=== PATIENT | female | born 1955 | race Caucasian/White ===

== ENCOUNTER 2017-10-11 15:45 | Inpatient (IN) | payer MEDICAID ==
[~2017-10-11] VITALS: Ht 152.4 cm; Wt 60.4 kg
[~2017-10-11 15:45] MED LIST: ALBU2.5V10 IH; ATR0.5NEB NEB; BUDE180A2 INH; BUSP5TAB26 PO; CLON-527 PO; COMIN IH; DIT5T PO; ESCI20TA29 PO; IBUP-1984 PO; LISI-222 PO; LORA-512 PO; LORA0.5T PO; METF500T4 PO; MONT10TA21 PO
[2017-10-11] MEDS ORDERED: methylPREDNISolone sod succ 125mg/2ml vial IV ONE (16:00)
[2017-10-11] MEDS ORDERED: ipratropium/albuterol 3ml nebule NEB ONE ×2 (16:00→19:40)
[2017-10-11 16:28] LABS: BASOPHILS % (AUTO) 0.4 % (0-1); EOSINOPHILS % (AUTO) 0.8 % (0-6); HEMATOCRIT 32.7 % (35.0-45.0); HEMOGLOBIN 10.6 g/dl (12.0-16.0); LYMPHOCYTES # (AUTO) 1.6 X10'3 (1.1-4.8); LYMPHOCYTES % (AUTO) 27.1 % (21-51); MEAN CORPUSCULAR HEMOGLOBIN 29.1 PG (27.0-31.0); MEAN CORPUSCULAR HGB CONC 32.4 % (33.0-36.5); MEAN CORPUSCULAR VOLUME 89.8 FL (78-98); MEAN PLATELET VOLUME 7.7 FL (7.4-10.4); MONOCYTES # (AUTO) 0.7 X10'3 (0-0.9); MONOCYTES % (AUTO) 11.6 % (2-12); NEUTROPHILS # (AUTO) 3.5 X10'3 (1.8-7.7); NEUTROPHILS % (AUTO) 60.1 % (42-75); PLATELET COUNT 251 X10'3 (140-440); RED BLOOD COUNT 3.64 X10'6 (4.20-5.60); RED CELL DISTRIBUTION WIDTH 15.9 % (11.5-14.5); WHITE BLOOD COUNT 5.8 X10'3 (4.5-11.0)
[2017-10-11 16:44] LABS: ALANINE AMINOTRANSFERASE 14 U/L (12-78); ALBUMIN/GLOBULIN RATIO 0.9 (1.1-1.5); ALKALINE PHOSPHATASE 67 IU/L (46-116); ANION GAP 7 (8-16); ASPARTATE AMINO TRANSFERASE 15 U/L (10-37); BILIRUBIN,TOTAL 0.2 MG/DL (0.1-1.0); BLOOD UREA NITROGEN 13 MG/DL (7-18); BUN/CREATININE RATIO 21.7 (6.6-38.0); CALCIUM 8.8 MG/DL (8.5-10.1); CHLORIDE 103 MMOL/L (99-107); GLUCOSE 112 MG/DL (70-104); POTASSIUM 4.1 MMOL/L (3.5-5.1); SODIUM 140 MMOL/L (135-145); TOTAL CARBON DIOXIDE 30.4 MMOL/L (24-32); TOTAL PROTEIN 6.2 G/DL (6.4-8.2); eGFR > 90 ML/MIN
[2017-10-11] MEDS ORDERED: PRED10TA PO (18:50)
[2017-10-11] MEDS ORDERED: TAM75C PO (18:50)
[2017-10-11] MEDS ORDERED: ATOR10TA87 PO (20:37)
[2017-10-11] MEDS ORDERED: FLUT1AER INH (20:37)
[2017-10-11] MEDS ORDERED: EPIN0.3P8 IM (20:37)
[2017-10-11] MEDS ORDERED: ALBU18HF2 INH (20:37)
[2017-10-11] MEDS ORDERED: GABA-532 PO (20:37)
[2017-10-11] MEDS ORDERED: CHOL100012 PO (20:37)
[2017-10-11] MEDS ORDERED: ASPI-107 PO (20:37)
[2017-10-11] MEDS ORDERED: IPRA4AER IH (20:37)
[2017-10-11] MEDS ORDERED: BUSP10TA11 PO (20:37)
[2017-10-11] MEDS ORDERED: IBUP-1984 PO (20:37)
[2017-10-11] MEDS ORDERED: oseltamivir phos 75mg capsule PO ONE (20:42)
[2017-10-11] MEDS ORDERED: mag hydrox/Alum hydrox/simeth 30ml oral suspension PO PRN (20:55)
[2017-10-11] MEDS ORDERED: MESSAGE TO PHARMACY PO ONE (20:55)
[2017-10-11] MEDS ORDERED: ondansetron/PF 4mg/2ml inj IV PRN (20:55)
[2017-10-11] MEDS ORDERED: glucagon, human recombinant 1mg kit SUBCUT PRN (20:55)
[2017-10-11] MEDS ORDERED: acetaminophen 325mg tablet PO PRN (20:55)
[2017-10-11] MEDS ORDERED: dextrose ORAL solution 15 GM/59 ML bottle PO PRN ×2 (20:55)
[2017-10-11] MEDS ORDERED: magnesium hydroxide 30ml (MOM) UD suspension PO PRN (20:55)
[2017-10-11] MEDS ORDERED: dextrose 50%-water 50ml dispensing syringe IV PRN ×2 (20:55)
[2017-10-11] MEDS: Insulin Detemir pen SQ SCH (21:00)
[2017-10-11] MEDS: oseltamivir phos 75mg capsule PO SCH (21:36)
[2017-10-11] MEDS: montelukast 10mg tablet PO SCH (21:36)
[2017-10-11] MEDS: normal saline 1000ml 1,000 ML IV SCH (22:00)
[2017-10-11 23:11] VITALS: BP 119/53
[2017-10-11] MEDS: ipratropium/albuterol 3ml nebule NEB PRN (23:51)
[2017-10-12] VITALS: BP 119/53
[2017-10-12] MEDS: methylPREDNISolone sod succ 125mg/2ml vial IV SCH ×4 (02:16→21:25)
[2017-10-12] MEDS: LORazepam 0.5 MG tablet PO PRN ×2 (02:16→21:25)
[2017-10-12 05:44] LABS: BASOPHILS % (AUTO) 0.3 % (0-1); EOSINOPHILS % (AUTO) 1.1 % (0-6); HEMATOCRIT 32.6 % (35.0-45.0); HEMOGLOBIN 10.6 g/dl (12.0-16.0); LYMPHOCYTES # (AUTO) 0.6 X10'3 (1.1-4.8); LYMPHOCYTES % (AUTO) 20.5 % (21-51); MEAN CORPUSCULAR HEMOGLOBIN 28.9 PG (27.0-31.0); MEAN CORPUSCULAR HGB CONC 32.4 % (33.0-36.5); MEAN CORPUSCULAR VOLUME 89.4 FL (78-98); MEAN PLATELET VOLUME 8.4 FL (7.4-10.4); MONOCYTES # (AUTO) 0.1 X10'3 (0-0.9); MONOCYTES % (AUTO) 3.8 % (2-12); NEUTROPHILS % (AUTO) 74.3 % (42-75); PLATELET COUNT 227 X10'3 (140-440); RED BLOOD COUNT 3.65 X10'6 (4.20-5.60); RED CELL DISTRIBUTION WIDTH 15.5 % (11.5-14.5); WHITE BLOOD COUNT 2.7 X10'3 (4.5-11.0)
[2017-10-12 05:58] LABS: ALBUMIN 2.9 G/DL (3.4-5.0); ANION GAP 2 (8-16); BLOOD UREA NITROGEN 10 MG/DL (7-18); BUN/CREATININE RATIO 22.2 (6.6-38.0); CALCIUM 8.3 MG/DL (8.5-10.1); CHLORIDE 104 MMOL/L (99-107); CREATININE 0.45 MG/DL (0.40-0.90); GLUCOSE 147 MG/DL (70-104); POTASSIUM 4.5 MMOL/L (3.5-5.1); SODIUM 138 MMOL/L (135-145); TOTAL CARBON DIOXIDE 31.6 MMOL/L (24-32); eGFR > 90 ML/MIN
[2017-10-12 06:41] LABS: HEMOGLOBIN A1C 6.6 % (4.5-6.2)
[2017-10-12] MEDS: normal saline 1000ml 1,000 ML IV SCH ×2 (06:53→08:27)
[2017-10-12 06:56] LABS: BANDS% (MANUAL) 5 % (0-10); NEUTROPHILS % (MANUAL) 80 % (42-75); TOTAL CELLS COUNTED 100
[2017-10-12 06:57] LABS: LYMPHOCYTES % (MANUAL) 13 % (21-51); MONOCYTES % (MANUAL) 2 % (2-12); PLATELET ESTIMATE NORMAL; SMUDGE CELLS 1+
[2017-10-12 07:22] VITALS: BP 106/64
[2017-10-12] MEDS: ipratropium/albuterol 3ml nebule NEB PRN ×2 (08:24→15:10)
[2017-10-12] MEDS: vitamin D (cholecalciferol) 1,000 unit tablet PO SCH (08:29)
[2017-10-12] MEDS: loratadine 10mg tablet PO SCH (08:31)
[2017-10-12] MEDS: busPIRone 5mg tablet PO SCH ×2 (08:31→21:25)
[2017-10-12] MEDS: aspirin 81mg tablet.DR PO SCH (08:32)
[2017-10-12] MEDS: oxybutynin 5mg tablet PO SCH ×2 (08:33→21:25)
[2017-10-12] MEDS: lisinopril 5mg tablet PO SCH (08:33)
[2017-10-12] MEDS: oseltamivir phos 75mg capsule PO SCH ×2 (08:33→21:25)
[2017-10-12] MEDS: gabapentin 300mg capsule PO SCH (08:34)
[2017-10-12] MEDS: atorvastatin 10mg tablet PO SCH (08:34)
[2017-10-12] MEDS: citalopram 20mg tablet PO SCH (08:35)
[2017-10-12] MEDS: enoxaparin 40mg/0.4ml syringe SUBCUT SCH (08:36)
[2017-10-12] MEDS: insulin Lispro (HumaLOG) vial - multi-dose SQ SCH ×3 (08:59→19:21)
[2017-10-12] MEDS ORDERED: guaiFENesin/codeine phos 10ml UD oral syrup PO PRN (10:10)
[2017-10-12] MEDS ORDERED: azithromycin 250mg tablet PO ONE (10:20)
[2017-10-12] MEDS: cefTRIAXone 1g/NS 100ml IVPB 100 ML IV SCH (10:49)
[2017-10-12 12:53] VITALS: BP 115/71
[2017-10-12] MEDS: acetaminophen 325mg tablet PO PRN (16:06)
[2017-10-12 19:30] VITALS: BP 122/63
[2017-10-12] MEDS: montelukast 10mg tablet PO SCH (21:25)
[2017-10-12] MEDS: Insulin Detemir pen SQ SCH (21:54)
[2017-10-12 23:30] VITALS: BP 95/64
[2017-10-13] MEDS: methylPREDNISolone sod succ 125mg/2ml vial IV SCH ×4 (03:09→19:33)
[2017-10-13 06:09] LABS: BASOPHILS % (AUTO) 0 % (0-1); EOSINOPHILS # (AUTO) 0.1 X10'3 (0-0.9); EOSINOPHILS % (AUTO) 1.3 % (0-6); HEMATOCRIT 31.9 % (35.0-45.0); HEMOGLOBIN 10.4 g/dl (12.0-16.0); LYMPHOCYTES % (AUTO) 17.2 % (21-51); MEAN CORPUSCULAR HGB CONC 32.7 % (33.0-36.5); MEAN CORPUSCULAR VOLUME 88.5 FL (78-98); MEAN PLATELET VOLUME 8.3 FL (7.4-10.4); MONOCYTES # (AUTO) 0.3 X10'3 (0-0.9); MONOCYTES % (AUTO) 5.5 % (2-12); NEUTROPHILS # (AUTO) 4.5 X10'3 (1.8-7.7); PLATELET COUNT 258 X10'3 (140-440); RED CELL DISTRIBUTION WIDTH 15.3 % (11.5-14.5); WHITE BLOOD COUNT 5.9 X10'3 (4.5-11.0)
[2017-10-13 06:22] LABS: ANION GAP 6 (8-16); BLOOD UREA NITROGEN 14 MG/DL (7-18); BUN/CREATININE RATIO 24.6 (6.6-38.0); CALCIUM 8.8 MG/DL (8.5-10.1); CHLORIDE 103 MMOL/L (99-107); CREATININE 0.57 MG/DL (0.40-0.90); GLUCOSE 146 MG/DL (70-104); POTASSIUM 4.1 MMOL/L (3.5-5.1); SODIUM 140 MMOL/L (135-145); TOTAL CARBON DIOXIDE 31.3 MMOL/L (24-32); eGFR > 90 ML/MIN
[2017-10-13 07:45] VITALS: BP 116/77
[2017-10-13] MEDS: cefTRIAXone 1g/NS 100ml IVPB 100 ML IV SCH (09:46)
[2017-10-13] MEDS: gabapentin 300mg capsule PO SCH (09:49)
[2017-10-13] MEDS: citalopram 20mg tablet PO SCH (09:50)
[2017-10-13] MEDS: aspirin 81mg tablet.DR PO SCH (09:51)
[2017-10-13] MEDS: busPIRone 5mg tablet PO SCH ×2 (09:51→19:33)
[2017-10-13] MEDS: atorvastatin 10mg tablet PO SCH (09:51)
[2017-10-13] MEDS: azithromycin 250mg tablet PO SCH (09:52)
[2017-10-13] MEDS: vitamin D (cholecalciferol) 1,000 unit tablet PO SCH (09:52)
[2017-10-13] MEDS: loratadine 10mg tablet PO SCH (09:53)
[2017-10-13] MEDS: oseltamivir phos 75mg capsule PO SCH ×2 (09:53→19:33)
[2017-10-13] MEDS: lisinopril 5mg tablet PO SCH (09:55)
[2017-10-13] MEDS: oxybutynin 5mg tablet PO SCH ×2 (09:56→19:33)
[2017-10-13] MEDS: enoxaparin 40mg/0.4ml syringe SUBCUT SCH (09:56)
[2017-10-13] MEDS: insulin Lispro (HumaLOG) vial - multi-dose SQ SCH ×3 (10:09→19:39)
[2017-10-13] MEDS: ipratropium/albuterol 3ml nebule NEB PRN ×2 (10:21→14:47)
[2017-10-13 11:00] VITALS: BP 116/63
[2017-10-13 19:00] VITALS: BP 131/82
[2017-10-13] MEDS: ipratropium/albuterol 3ml nebule NEB SCH ×2 (19:28→23:13)
[2017-10-13] MEDS: LORazepam 0.5 MG tablet PO PRN (19:36)
[2017-10-13] MEDS: montelukast 10mg tablet PO SCH (21:45)
[2017-10-13] MEDS: Insulin Detemir pen SQ SCH (21:47)
[2017-10-14] VITALS: BP 119/74
[2017-10-14] MEDS: methylPREDNISolone sod succ 125mg/2ml vial IV SCH ×4 (01:44→20:33)
[2017-10-14] MEDS: ipratropium/albuterol 3ml nebule NEB SCH ×6 (03:36→23:14)
[2017-10-14] MEDS: acetaminophen 325mg tablet PO PRN ×2 (04:58→20:34)
[2017-10-14 05:58] LABS: HEMATOCRIT 30.7 % (35.0-45.0); HEMOGLOBIN 9.9 g/dl (12.0-16.0); MEAN CORPUSCULAR HEMOGLOBIN 28.8 PG (27.0-31.0); MEAN CORPUSCULAR HGB CONC 32.4 % (33.0-36.5); MEAN CORPUSCULAR VOLUME 88.8 FL (78-98); MEAN PLATELET VOLUME 8.3 FL (7.4-10.4); PLATELET COUNT 269 X10'3 (140-440); RED BLOOD COUNT 3.45 X10'6 (4.20-5.60); RED CELL DISTRIBUTION WIDTH 15.2 % (11.5-14.5); WHITE BLOOD COUNT 6.3 X10'3 (4.5-11.0)
[2017-10-14 06:12] LABS: ANION GAP 4 (8-16); BLOOD UREA NITROGEN 15 MG/DL (7-18); BUN/CREATININE RATIO 24.2 (6.6-38.0); CALCIUM 8.8 MG/DL (8.5-10.1); CHLORIDE 101 MMOL/L (99-107); CREATININE 0.62 MG/DL (0.40-0.90); GLUCOSE 139 MG/DL (70-104); POTASSIUM 3.7 MMOL/L (3.5-5.1); SODIUM 137 MMOL/L (135-145); TOTAL CARBON DIOXIDE 31.9 MMOL/L (24-32); eGFR > 90 ML/MIN
[2017-10-14 07:21] LABS: ANISOCYTOSIS 1+; MICROCYTOSIS 1+; PLATELET ESTIMATE NORMAL; TOTAL CELLS COUNTED 100
[2017-10-14] MEDS: lisinopril 5mg tablet PO SCH (07:57)
[2017-10-14] MEDS: oseltamivir phos 75mg capsule PO SCH ×2 (07:57→20:35)
[2017-10-14] MEDS: busPIRone 5mg tablet PO SCH ×2 (07:57→20:34)
[2017-10-14] MEDS: oxybutynin 5mg tablet PO SCH ×2 (07:58→20:34)
[2017-10-14] MEDS: aspirin 81mg tablet.DR PO SCH (07:58)
[2017-10-14] MEDS: loratadine 10mg tablet PO SCH (07:58)
[2017-10-14] MEDS: LACTOBACILLUS RHAMNOSUS GG 15 billion unit sprinkle caps PO SCH (07:58)
[2017-10-14] MEDS: atorvastatin 10mg tablet PO SCH (07:59)
[2017-10-14] MEDS: cefTRIAXone 1g/NS 100ml IVPB 100 ML IV SCH (07:59)
[2017-10-14] MEDS: gabapentin 300mg capsule PO SCH (07:59)
[2017-10-14] MEDS: azithromycin 250mg tablet PO SCH (07:59)
[2017-10-14] MEDS: vitamin D (cholecalciferol) 1,000 unit tablet PO SCH (07:59)
[2017-10-14] MEDS: citalopram 20mg tablet PO SCH (07:59)
[2017-10-14] MEDS: enoxaparin 40mg/0.4ml syringe SUBCUT SCH (08:00)
[2017-10-14 08:15] VITALS: BP 118/73
[2017-10-14] MEDS: insulin Lispro (HumaLOG) vial - multi-dose SQ SCH ×3 (09:42→20:56)
[2017-10-14 11:45] VITALS: BP 115/65
[2017-10-14] MEDS: LORazepam 0.5 MG tablet PO PRN ×2 (13:22→20:35)
[2017-10-14 20:00] VITALS: BP 138/71
[2017-10-14] MEDS: montelukast 10mg tablet PO SCH (20:34)
[2017-10-14] MEDS: Insulin Detemir pen SQ SCH (20:55)
[2017-10-14 23:42] VITALS: BP 127/71
[2017-10-15] MEDS: methylPREDNISolone sod succ 125mg/2ml vial IV SCH (02:25)
[2017-10-15] MEDS: acetaminophen 325mg tablet PO PRN (02:26)
[2017-10-15] MEDS: ipratropium/albuterol 3ml nebule NEB SCH ×3 (03:08→11:18)
[2017-10-15 06:03] LABS: BASOPHILS % (AUTO) 0.1 % (0-1); EOSINOPHILS # (AUTO) 0.1 X10'3 (0-0.9); EOSINOPHILS % (AUTO) 1.4 % (0-6); HEMATOCRIT 29.9 % (35.0-45.0); HEMOGLOBIN 9.8 g/dl (12.0-16.0); LYMPHOCYTES # (AUTO) 0.6 X10'3 (1.1-4.8); MEAN CORPUSCULAR HEMOGLOBIN 28.8 PG (27.0-31.0); MEAN CORPUSCULAR HGB CONC 32.7 % (33.0-36.5); MEAN CORPUSCULAR VOLUME 88.3 FL (78-98); MEAN PLATELET VOLUME 8.2 FL (7.4-10.4); MONOCYTES # (AUTO) 0.3 X10'3 (0-0.9); MONOCYTES % (AUTO) 5.1 % (2-12); NEUTROPHILS # (AUTO) 5.1 X10'3 (1.8-7.7); NEUTROPHILS % (AUTO) 83.4 % (42-75); PLATELET COUNT 273 X10'3 (140-440); RED BLOOD COUNT 3.39 X10'6 (4.20-5.60); RED CELL DISTRIBUTION WIDTH 15.1 % (11.5-14.5); WHITE BLOOD COUNT 6.1 X10'3 (4.5-11.0)
[2017-10-15 06:22] LABS: ANION GAP 4 (8-16); BLOOD UREA NITROGEN 24 MG/DL (7-18); BUN/CREATININE RATIO 38.1 (6.6-38.0); CHLORIDE 101 MMOL/L (99-107); CREATININE 0.63 MG/DL (0.40-0.90); GLUCOSE 177 MG/DL (70-104); POTASSIUM 4.2 MMOL/L (3.5-5.1); SODIUM 137 MMOL/L (135-145); TOTAL CARBON DIOXIDE 32.3 MMOL/L (24-32); eGFR > 90 ML/MIN
[2017-10-15 07:00] VITALS: BP 133/70
[2017-10-15] MEDS ORDERED: azithromycin 250mg tablet PO SCH (08:30)
[2017-10-15] MEDS: insulin Lispro (HumaLOG) vial - multi-dose SQ SCH (08:54)
[2017-10-15] MEDS: LACTOBACILLUS RHAMNOSUS GG 15 billion unit sprinkle caps PO SCH (08:59)
[2017-10-15] MEDS: busPIRone 5mg tablet PO SCH (09:00)
[2017-10-15] MEDS: oxybutynin 5mg tablet PO SCH (09:00)
[2017-10-15] MEDS: gabapentin 300mg capsule PO SCH (09:00)
[2017-10-15] MEDS: loratadine 10mg tablet PO SCH (09:01)
[2017-10-15] MEDS: aspirin 81mg tablet.DR PO SCH (09:01)
[2017-10-15] MEDS: citalopram 20mg tablet PO SCH (09:01)
[2017-10-15] MEDS: oseltamivir phos 75mg capsule PO SCH (09:02)
[2017-10-15] MEDS: atorvastatin 10mg tablet PO SCH (09:02)
[2017-10-15] MEDS: vitamin D (cholecalciferol) 1,000 unit tablet PO SCH (09:03)
[2017-10-15] MEDS: lisinopril 5mg tablet PO SCH (09:03)
[2017-10-15] MEDS: LORazepam 0.5 MG tablet PO PRN (09:04)
[2017-10-15] MEDS: enoxaparin 40mg/0.4ml syringe SUBCUT SCH (09:04)
[2017-10-15] MEDS ORDERED: methylPREDNISolone sod succ 125mg/2ml vial IV ONE (10:15)
[2017-10-15 11:00] VITALS: BP 127/74
[2017-10-15] MEDS ORDERED: AZI25OT PO (12:27)
[2017-10-15] MEDS ORDERED: PRED20TA PO (12:27)
[2017-10-15] MEDS ORDERED: TAM75C PO (12:27)
[2017-10-16] MEDS ORDERED: predniSONE 20 mg tablet PO SCH (08:00)
== END 2017-10-15 13:15 | disposition home or self-care (01) | DRG 140 ==
LOC: ER 15:46 → ED HOLD 20:54 → MED 3N 21:51
PROVIDERS: ADMIT Internal Medicine; ATTEND Family Medicine
DX: J44.1 Chronic obstructive pulmonary disease with (acute) exacerbation (principal); J96.21 Acute and chronic respiratory failure with hypoxia; Z99.81 Dependence on supplemental oxygen; I10 Essential (primary) hypertension; D64.9 Anemia, unspecified; E11.9 Type 2 diabetes mellitus without complications; J10.1 Influenza due to other identified influenza virus with other respiratory manifestations; F32.9 Major depressive disorder, single episode, unspecified; E78.5 Hyperlipidemia, unspecified; F41.9 Anxiety disorder, unspecified; Z88.1 Allergy status to other antibiotic agents; Z79.899 Other long term (current) drug therapy; Z79.01 Long term (current) use of anticoagulants; Z87.891 Personal history of nicotine dependence; Z79.84 Long term (current) use of oral hypoglycemic drugs; Z79.4 Long term (current) use of insulin
CPT/HCPCS: 36415; 71046; 80048; 80053; 82948; 83036; 83605; 83880; 85025; 87040; 87070; 87502; 87503; 93005; 94640; 94760; 96374; 99285; J0696; J1650; J2930; J7030